=== PATIENT | male | born 1955 | race Caucasian/White ===

== ENCOUNTER 2017-07-27 22:32 | Emergency (ER) | payer BC ==
--- NOTE | 2017-07-27 22:42 | EDPHY ---
H & P Stated Complaint: +LOC, after kneeling to standing HPI/ROS: HPI CHIEF COMPLAINT: Syncope, head injury HISTORY OF PRESENT ILLNESS: Patient very pleasant 62-year-old male, presents emergency room by private vehicle after states that he was squatting for 5 min in the bathroom all reading his cell phone, he stood up quickly got very lightheaded felt like he was going to pass out and then had a syncopal episode. He had head strike against the tub. He woke up he was not postictal. He did not bite his tongue but has a hematoma left side of his occiput. Denies any palpitations or chest pain or shortness of breath. States now he feels fine. Current headache 09/04. Past Medical History: Hyperlipidemia Past Surgical History: Cataract surgery, corneal surgery Social History: Denies daily use of drugs alcohol tobacco. Family History: Noncontributory ROS REVIEW OF SYSTEMS: A comprehensive 10 point review of systems is otherwise negative aside from elements mentioned in the history of present illness. Exam Constitutional appears well nontoxic, triage nursing summary reviewed, vital signs reviewed, awake/alert. Vital signs stable. Eyes normal conjunctivae and sclera, EOMI, PERRLA. HENT normal inspection, atraumatic, moist mucus membranes, no epistaxis, neck supple/ no meningismus, no raccoon eyes. Respiratory clear to auscultation bilaterally, normal breath sounds, no respiratory distress, no wheezing. Cardiovascular rate normal, regular rhythm, no murmur, no edema, distal pulses normal. Gastrointestinal soft, non-tender, no rebound, no guarding, normal bowel sounds, no distension, no pulsatile mass. Genitourinary no CVA tenderness. Musculoskeletal no midline vertebral tenderness, full range of motion, no calf swelling, no tenderness of extremities, no meningismus, good pulses, neurovascularly intact. Skin pink, warm, & dry, no rash, skin atraumatic. Neurologic awake, alert and oriented x 3, AAOx3, moves all 4 extremities equally, motor intact, sensory intact, CN II-XII intact, normal cerebellar, normal vision, normal speech. Psychiatric normal mood/affect. Heme/Lymph/Immune no lymphadenopathy. Differential Diagnosis: Includes but is not limited to in a particular order orthostatic hypertension leading to syncope, vasovagal syncope, electrolyte disturbance, dehydration, cardiac arrhythmia, cardiac event Medical Decision Making: Plan for this patient his syncopal episodes sounds very positional from a squatting to standing position, he will be hydrated here will check orthostatics, check EKG basic blood work and a troponin and re- evaluate. Re-evaluation: EKG interpretation by me on record in [facility] system. Impression time of EKG 2251, sinus rhythm rate of 69 no signs of ischemia. Or prolonged intervals or signs of cardiac arrhythmia. Unremarkable EKG. 2321: Patient's orthostatics noted be negative. During the testing with orthostatics he had no dizziness or lightheadedness. He felt fine. CT head without contrast negative for acute bleed or fracture. Called to me by Dr. Corrigan. 1236AM: Patient re-evaluated resting comfortably no acute distress feels well. Denies chest pain or shortness of breath. Blood work is reassuring negative troponin. Nonischemic and no signs of cardiac arrhythmia on the EKG. Patient is requesting go home. Most likely cause of syncope is squatting for prolonged period of time and then standing vertically quickly. Recommend slow movements. Stay well-hydrated. Discussed return precautions with the patient and at bedside. Additionally understands to return emergency room if there is any worsening symptoms questions or concerns, this includes syncope, chest pain or shortness of breath. Source: Patient - Personal History Current Tetanus Diphtheria and Acellular Pertussis (TDAP): Yes Tetanus Vaccine Date: less than 10 years - Medical/Surgical History Hx Asthma: No Hx Chronic Respiratory Disease: No Hx Diabetes: No Hx Cardiac Disease: No Hx Renal Disease: No Hx Cirrhosis: No Hx Alcoholism: No Hx HIV/AIDS: No Hx Splenectomy or Spleen Trauma: No Other PMH: cataract sx, corneal transplant - Social History Smoking Status: Never smoked Constitutional: Initial Vital Signs Temperature (C) 36.6 C 07/27/17 22:38 Heart Rate 71 07/27/17 22:38 Respiratory Rate 16 07/27/17 22:38 Blood Pressure 126/78 H 07/27/17 22:38 O2 Sat (%) 95 07/27/17 22:38 O2 Delivery Mode Room Air Allergies/Adverse Reactions: tree nut [Nuts] Allergy (Verified 07/27/17 22:37) Home Medications: Medication Instructions Recorded ASPIRIN 07/27/17 Crestor 07/27/17 Valtrex 07/27/17 Medical Decision Making - Diagnostics Imaging Results: Imaging Impressions Head CT 07/27/17 22:49 Impression: No acute intracranial abnormalities. Dr. Corrigan discussed these findings by telephone with Ayden Veloz MD on at 23:22. - Data Points Laboratory Results: Laboratory Results 07/27/17 23:00 07/27/17 23:00 07/27/17 07/27/17 23:00 23:00 WBC 6.32 10^3/uL 10^3/uL (3.80-9.50) RBC 4.51 10^6/uL 10^6/uL (4.40-6.38) Hgb 14.2 g/dL g/dL (13.7-17.5) Hct 41.0 % % (40.0-51.0) MCV 90.9 fL fL (81.5-99.8) MCH 31.5 pg pg (27.9-34.1) MCHC 34.6 g/dL g/dL (32.4-36.7) RDW 13.5 % % (11.5-15.2) Plt Count 163 10^3/uL 10^3/uL (150-400) MPV 10.7 fL fL (8.7-11.7) Neut % (Auto) 45.3 % % (39.3-74.2) Lymph % (Auto) 39.7 % % (15.0-45.0) [place]le % (Auto) 8.5 % % (4.5-13.0) Eos % (Auto) 5.5 % % (0.6-7.6) Baso % (Auto) 0.8 % % (0.3-1.7) Nucleat RBC Rel Count 0.0 % % (0.0-0.2) Absolute Neuts (auto) 2.86 10^3/uL 10^3/uL (1.70-6.50) Absolute Lymphs (auto) 2.51 10^3/uL 10^3/uL (1.00-3.00) Absolute Monos (auto) 0.54 10^3/uL 10^3/uL (0.30-0.80) Absolute Eos (auto) 0.35 10^3/uL 10^3/uL (0.03-0.40) Absolute Basos (auto) 0.05 10^3/uL 10^3/uL (0.02-0.10) Absolute Nucleated RBC 0.00 10^3/uL 10^3/uL (0-0.01) Immature Gran % 0.2 % % (0.0-1.1) Immature Gran # 0.01 10^3/uL 10^3/uL (0.00-0.10) Sodium 140 mEq/L mEq/L (135-145) Potassium 3.9 mEq/L mEq/L (3.5-5.2) Chloride 103 mEq/L mEq/L (97-110) Carbon Dioxide 28 mEq/l mEq/l (22-31) Anion Gap 9 mEq/L mEq/L (8-16) BUN 9 mg/dL mg/dL (7-23) Creatinine 0.7 mg/dL mg/dL (0.7-1.3) Estimated GFR > 60 Glucose 82 mg/dL mg/dL (70-100) Calcium 9.1 mg/dL mg/dL (8.5-10.4) Troponin I < 0.012 ng/mL ng/mL (0.000-0.034) Medications Given: Discontinued Medications Sodium Chloride (Ns) 1,000 mls @ 0 mls/hr IV EDNOW ONE; Wide Open PRN Reason: Protocol Stop: 07/27/17 22:50 Last Admin: 07/27/17 23:19 Dose: 1,000 mls Departure - Departure Disposition: Home, Routine, Self-Care Clinical Impression: Syncope Qualifiers: Syncope type: unspecified Qualified Code(s): R55 - Syncope and collapse Condition: Good Instructions: Syncope (ED) Additional Instructions: 1. Return emergency room if develops any further symptoms includes chest pain, or you had another episode of passing out. 2. Stay well-hydrated drink lots of fluids. 3. When you touch go from a seated or lying position to a standing position go slowly. 4. Return if any further symptoms questions or concerns. Referrals: NONE *PRIMARY CARE P,. [Unknown] - As per Instructions
[2017-07-27] MEDS ORDERED: NS 1,000 ML IV ONE (22:49)
--- NOTE | 2017-07-27 22:54 | CPEKG ---
Heart Rate: 69 RR Interval: 870 P-R Interval: 144 QRSD Interval: 78 QT Interval: 384 QTC Interval: 412 P [place]: 17 QRS [place]: -15 T Wave [place]: 23 EKG Severity - OTHERWISE NORMAL ECG - EKG Impression: SINUS RHYTHM EKG Impression: BORDERLINE LEFT AXIS DEVIATION Electronically Signed By: Ayden Veloz 28-Jul-2017 07:56:38
[2017-07-27 23:08] LABS: PLATELET COUNT 163 10^3/uL (150-400)
[2017-07-28 00:42] VITALS: BP 113/75; PULSE 75; RESP 18; TEMP 98.1; O2SAT 97
== END 2017-07-28 00:42 | disposition home or self-care (01) ==
PROC: 3E0337Z Introduction of Electrolytic and Water Balance Substance into Peripheral Vein, Percutaneous Approach (ICD-10-PCS; principal; 2017-07-27)
DX: R55 Syncope and collapse (principal); E86.9 Volume depletion, unspecified; W22.8XXA Striking against or struck by other objects, initial encounter; Y92.002 Bathroom of unspecified non-institutional (private) residence as the place of occurrence of the external cause; Y93.89 Activity, other specified